=== PATIENT | male | born 1975 | race Caucasian/White ===

== ENCOUNTER 2019-03-04 17:16 | Emergency (ER) | payer OTHER ==
[~2019-03-04] VITALS: Ht 170.2 cm; Wt 104.5 kg
[2019-03-04 17:26] VITALS: Ht 170.2 cm; Wt 104.5 kg
[2019-03-04] MEDS ORDERED: KEFLEX500 MG PO (17:28)
[2019-03-04] MEDS ORDERED: MUPIROCIN15 GM TOPICAL (17:29)
[2019-03-04] MEDS ORDERED: SULFAMETHOXAZOL1 TA2 PO (17:29)
[2019-03-04 18:17] LABS: APPEARANCE CLEAR (CLEAR); BILIRUBIN NEGATIVE (NEGATIVE); COLOR YELLOW (YELLOW); GLUCOSE NEGATIVE (NEGATIVE); KETONE NEGATIVE (NEGATIVE); NITRITE NEGATIVE (NEGATIVE); PROTEIN NEGATIVE (NEGATIVE); SPECIFIC GRAVITY 1.015 (1.005-1.020); UROBILINOGEN NORMAL (NORMAL)
[2019-03-04 18:18] LABS: RED CELLS - URINE OCC /hpf (0-5); WHITE CELLS - URINE OCC /hpf (NEGATIVE)
[2019-03-04] MEDS ORDERED: VIBRAMYCIN 100100 MG PO (19:47)
[2019-03-04] MEDS ORDERED: VALTREX1000 MG PO (19:47)
[2019-03-04] MEDS ORDERED: TORADOL10 MG PO (19:47)
[2019-03-04 20:44] VITALS: BP 135/74
[2019-03-08 09:08] LABS: HSV 1 DNA (PCR) Negative (Negative); HSV 2 DNA (PCR) Negative (Negative)
[2019-03-17 05:10] LABS: VIRAL - RESULT No virus isolated. (())
== END 2019-03-04 20:45 | disposition home or self-care (01) ==
LOC: D.ER 17:16
PROVIDERS: Emergency Medicine; Family Medicine
DX: N48.1 Balanitis (principal); N48.9 Disorder of penis, unspecified